=== PATIENT | male | born 1955 | race Caucasian/White ===

== ENCOUNTER 2016-11-16 13:05 | Emergency (ER) | payer BC ==
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
[2016-11-16] MEDS ORDERED: ONDANSETRON HCL IV 4 MG/2 ML VIAL IVP ONE (13:39)
[2016-11-16] MEDS: HYDROMORPHONE HCL 1 MG/ML CPJ IVP ONE ×2 (14:39→14:57)
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
== END 2016-11-16 15:25 | disposition short-term general hospital (02) ==
LOC: ER 13:05
DX: S02.69XA Fracture of mandible of other specified site, initial encounter for closed fracture (principal); R13.10 Dysphagia, unspecified; W51.XXXA Accidental striking against or bumped into by another person, initial encounter
CPT/HCPCS: 99285 ×2; 96374; 96375; 70486; J2405; J1170